=== PATIENT | male | born 1975 | race Caucasian/White ===

== ENCOUNTER 2017-12-25 11:19 | Emergency (ER) | payer MEDICAID, OTHER ==
[~2017-12-25] VITALS: Ht 170.2 cm; Wt 64.0 kg
[~2017-12-25 11:19] MED LIST: DEPER5 PO; DOCU-138 PO; QUET400T PO
[2017-12-25 11:29] VITALS: BP 167/95
== END 2017-12-25 15:46 | disposition home or self-care (01) ==
LOC: ER 11:19
DX: J20.9 Acute bronchitis, unspecified (principal); I10 Essential (primary) hypertension; I25.810 Atherosclerosis of coronary artery bypass graft(s) without angina pectoris; Z98.61 Coronary angioplasty status; Z79.899 Other long term (current) drug therapy
CPT/HCPCS: 71045; 99283

== ENCOUNTER 2017-12-25 20:01 | Emergency (ER) | payer OTHER ==
[~2017-12-25] VITALS: Ht 170.2 cm; Wt 63.0 kg
[2017-12-26 00:13] VITALS: BP 146/65
== END 2017-12-26 00:14 | disposition home or self-care (01) ==
LOC: ER 20:01
DX: J20.9 Acute bronchitis, unspecified (principal); J06.9 Acute upper respiratory infection, unspecified; R51 Headache; I25.10 Atherosclerotic heart disease of native coronary artery without angina pectoris; I10 Essential (primary) hypertension; F20.9 Schizophrenia, unspecified; Z95.1 Presence of aortocoronary bypass graft
CPT/HCPCS: 99283

== ENCOUNTER 2018-01-13 10:41 | Emergency (ER) | payer OTHER ==
[~2018-01-13] VITALS: Ht 170.2 cm; Wt 58.0 kg
[2018-01-13 10:43] VITALS: BP 149/58
[2018-01-13 11:54] LABS: BASOPHILS % 0.3 % (0.0-2.0); CHLORIDE 106 mEq/L (98-107); EOSINOPHILS % 0.8 % (0.0-5.0); HEMATOCRIT. 32.2 % (42.0-52.0); HEMOGLOBIN. 10.9 g/dL (14.0-18.0); MEAN CORPUSCULAR HEMOGLOBIN 32.4 pg (28.0-32.0); MEAN CORPUSCULAR VOLUME 95.9 fL (80.0-94.0); MEAN PLATELET VOLUME 8.6 fl (7.4-10.4); NEUTROPHILS % 64.9 % (40.0-76.0); PLATELET 80 x1000/uL (130-400); RED BLOOD CELL COUNT 3.35 mill/uL (4.7-6.1); RED CELL DISTRIBUTION WIDTH 14.6 % (11.6-14.6)
[2018-01-13 12:36] LABS: CLARITY URINE CLEAR (CLEAR); COLOR URINE YELLOW (YELLOW); KETONES URINE NEGATIVE (NEGATIVE); LEUKOCYTE ESTERASE URINE NEGATIVE (NEGATIVE); NITRITE URINE NEGATIVE (NEGATIVE); OCCULT BLOOD URINE NEGATIVE (NEGATIVE); PH URINE 6.5 (4.5-8.0); PROTEIN URINE NEGATIVE (NEGATIVE); SPECIFIC GRAVITY URINE 1.018 (1.005-1.030)
[2018-01-13 13:34] LABS: *AMPHETAMINES SCREEN URINE NEGATIVE (NEGATIVE); *BARBITURATES SCREEN URINE NEGATIVE (NEGATIVE); *BENZODIAZEPINES SCREEN URINE NEGATIVE (NEGATIVE); *COCAINE SCREEN URINE NEGATIVE (NEGATIVE); CANNABINOID URINE SCREEN NEGATIVE (NEGATIVE); METHADONE URINE SCREEN NEGATIVE (NEGATIVE); PHENCYCLIDINE URINE SCREEN NEGATIVE (NEGATIVE)
[2018-01-13 13:35] LABS: OPIATES URINE SCREEN NEGATIVE (NEGATIVE)
[2018-01-13] MEDS ORDERED: AZITHROMYCIN 500 MG TABLET PO SCH (16:00)
[2018-01-13 16:10] LABS: HEPATITIS B SURFACE ANTIGEN NEGATIVE
[2018-01-13 16:38] LABS: HEPATITIS B CORE AB IGM NEGATIVE
[2018-01-13 16:40] LABS: HEPATITIS A AB IGM NEGATIVE (NEGATIVE)
== END 2018-01-13 15:53 | disposition left against medical advice (07) ==
LOC: ER 12:04 → EDBEDREQ 16:00 → EDBEDREQTM 16:00 → EDBEDREQ 16:01 → CANBEDREQ 17:16
DX: J18.9 Pneumonia, unspecified organism (principal); J90 Pleural effusion, not elsewhere classified; D53.9 Nutritional anemia, unspecified; D72.819 Decreased white blood cell count, unspecified; E86.0 Dehydration; E46 Unspecified protein-calorie malnutrition; E88.09 Other disorders of plasma-protein metabolism, not elsewhere classified; R53.83 Other fatigue; R53.81 Other malaise; B19.20 Unspecified viral hepatitis C without hepatic coma; F41.9 Anxiety disorder, unspecified; F31.9 Bipolar disorder, unspecified; I10 Essential (primary) hypertension; J06.9 Acute upper respiratory infection, unspecified; I25.810 Atherosclerosis of coronary artery bypass graft(s) without angina pectoris; Z98.890 Other specified postprocedural states
CPT/HCPCS: 36415; 71045; 80053; 80305; 81003; 83036; 83735; 83880; 84484; 85025; 86705; 86709; 86803; 87040; 87086; 87340; 93005; 99285

== ENCOUNTER 2018-02-14 14:04 | Emergency (ER) | payer OTHER ==
[~2018-02-14] VITALS: Ht 170.2 cm; Wt 63.0 kg
[2018-02-14] MEDS ORDERED: KETOROLAC 30MG/ML VIAL IV STA (14:17)
[2018-02-14] MEDS ORDERED: SODIUM CHLORIDE 0.9% 1,000 ML IV ONE (14:17)
[2018-02-14] MEDS ORDERED: METOCLOPRAMIDE HCL 10MG/2ML VIAL IV ONE (14:30)
[2018-02-14] MEDS ORDERED: DIPHENHYDRAMINE 50MG/ML VIAL IV ONE (14:30)
[2018-02-14 15:18] LABS: BASOPHILS % 0.4 % (0.0-2.0); EOSINOPHILS % 2.2 % (0.0-5.0); HEMOGLOBIN. 11.3 g/dL (14.0-18.0); MEAN CORPUSCULAR HEMOGLOBIN 31.7 pg (28.0-32.0); MEAN CORPUSCULAR VOLUME 92.3 fL (80.0-94.0); MEAN PLATELET VOLUME 8.1 fl (7.4-10.4); MONOCYTES % 10.9 % (2.0-8.0); NEUTROPHILS % 62.5 % (40.0-76.0); PLATELET 128 x1000/uL (130-400); RED BLOOD CELL COUNT 3.57 mill/uL (4.7-6.1)
[2018-02-14 15:23] LABS: CHLORIDE 107 mEq/L (98-107)
[2018-02-14 16:10] VITALS: BP 108/70
== END 2018-02-14 16:55 | disposition home or self-care (01) ==
LOC: ER 14:42
DX: J18.9 Pneumonia, unspecified organism (principal); D64.9 Anemia, unspecified; E86.0 Dehydration; E88.09 Other disorders of plasma-protein metabolism, not elsewhere classified; R51 Headache; F41.9 Anxiety disorder, unspecified; I11.9 Hypertensive heart disease without heart failure; F31.9 Bipolar disorder, unspecified; Q25.1 Coarctation of aorta; Z79.899 Other long term (current) drug therapy
CPT/HCPCS: 36415; 71045; 80053; 82962; 85025; 96361; 96374; 96375; 99285; J1200; J1885; J2765; J7030

== ENCOUNTER 2018-03-03 08:59 | Emergency (ER) | payer OTHER ==
[~2018-03-03] VITALS: Ht 170.2 cm; Wt 68.0 kg
[2018-03-03 11:49] LABS: CLARITY URINE CLEAR (CLEAR); COLOR URINE ORANGE (YELLOW); KETONES URINE NEGATIVE (NEGATIVE); LEUKOCYTE ESTERASE URINE NEGATIVE (NEGATIVE); NITRITE URINE NEGATIVE (NEGATIVE); OCCULT BLOOD URINE NEGATIVE (NEGATIVE); PH URINE 6.5 (4.5-8.0); PROTEIN URINE NEGATIVE (NEGATIVE); SPECIFIC GRAVITY URINE 1.016 (1.005-1.030)
[2018-03-03 12:41] LABS: CHLORIDE 105 mEq/L (98-107)
[2018-03-03 12:45] LABS: BASOPHILS % 0.4 % (0.0-2.0); EOSINOPHILS % 0.3 % (0.0-5.0); HEMATOCRIT. 35.9 % (42.0-52.0); HEMOGLOBIN. 12.3 g/dL (14.0-18.0); LYMPHOCYTES % 20.8 % (20.0-50.0); MEAN CORPUSCULAR HEMOGLOBIN 31.5 pg (28.0-32.0); MEAN CORPUSCULAR VOLUME 91.6 fL (80.0-94.0); MEAN PLATELET VOLUME 8.5 fl (7.4-10.4); MONOCYTES % 8.3 % (2.0-8.0); NEUTROPHILS % 70.2 % (40.0-76.0); PLATELET 156 x1000/uL (130-400); RED BLOOD CELL COUNT 3.92 mill/uL (4.7-6.1); RED CELL DISTRIBUTION WIDTH 14.3 % (11.6-14.6)
[2018-03-03 14:15] VITALS: BP 145/93
== END 2018-03-03 15:16 | disposition home or self-care (01) ==
LOC: ER 09:15
DX: K59.00 Constipation, unspecified (principal); F41.9 Anxiety disorder, unspecified; F31.9 Bipolar disorder, unspecified; I10 Essential (primary) hypertension; I51.9 Heart disease, unspecified; J06.9 Acute upper respiratory infection, unspecified; Q25.1 Coarctation of aorta; Z98.890 Other specified postprocedural states; Z79.899 Other long term (current) drug therapy
CPT/HCPCS: 36415; 74176; 80165; 99284

== ENCOUNTER 2018-05-19 20:08 | Emergency (ER) | payer OTHER ==
[~2018-05-19] VITALS: Ht 172.7 cm; Wt 69.0 kg
[2018-05-19 23:45] LABS: BASOPHILS % 0.6 % (0.0-2.0); EOSINOPHILS % 0.9 % (0.0-5.0); HEMATOCRIT. 34.2 % (42.0-52.0); HEMOGLOBIN. 11.4 g/dL (14.0-18.0); LYMPHOCYTES % 28.9 % (20.0-50.0); MEAN CORPUSCULAR HEMOGLOBIN 30.1 pg (28.0-32.0); MEAN CORPUSCULAR VOLUME 90.2 fL (80.0-94.0); MEAN PLATELET VOLUME 8.7 fl (7.4-10.4); MONOCYTES % 13.7 % (2.0-8.0); NEUTROPHILS % 55.9 % (40.0-76.0); PLATELET 83 x1000/uL (130-400); RED BLOOD CELL COUNT 3.79 mill/uL (4.7-6.1); RED CELL DISTRIBUTION WIDTH 15.4 % (11.6-14.6)
[2018-05-19 23:49] LABS: CHLORIDE 108 mEq/L (98-107)
[2018-05-20 04:33] VITALS: BP 154/64
== END 2018-05-20 05:06 | disposition home or self-care (01) ==
LOC: ER 20:08 → CANBEDREQ 05-20 06:41
DX: R07.9 Chest pain, unspecified (principal); J45.909 Unspecified asthma, uncomplicated; I10 Essential (primary) hypertension; Z98.62 Peripheral vascular angioplasty status
CPT/HCPCS: 36415; 71045; 83880; 84484; 93005; 99284

== ENCOUNTER 2018-08-12 15:54 | Emergency (ER) | payer OTHER ==
[~2018-08-12] VITALS: Ht 170.2 cm; Wt 64.0 kg
[2018-08-12] MEDS ORDERED: ALBUTEROL (0.083%) 2.5MG/3ML NEB HHN STA (16:46)
[2018-08-12 17:20] LABS: BASOPHILS % 0.6 % (0.0-2.0); EOSINOPHILS % 0.9 % (0.0-5.0); HEMATOCRIT. 34.6 % (42.0-52.0); HEMOGLOBIN. 11.7 g/dL (14.0-18.0); MEAN CORPUSCULAR HEMOGLOBIN 32.2 pg (28.0-32.0); MEAN PLATELET VOLUME 8.4 fl (7.4-10.4); MONOCYTES % 13.3 % (2.0-8.0); NEUTROPHILS % 67.2 % (40.0-76.0); PLATELET 102 x1000/uL (130-400); RED BLOOD CELL COUNT 3.64 mill/uL (4.7-6.1); RED CELL DISTRIBUTION WIDTH 15.6 % (11.6-14.6)
[2018-08-12 17:22] LABS: CHLORIDE 106 mEq/L (98-107)
[2018-08-12 18:56] VITALS: BP 137/74
== END 2018-08-12 18:59 | disposition home or self-care (01) ==
LOC: ER 15:54
DX: J45.909 Unspecified asthma, uncomplicated (principal); R05 Cough; J34.89 Other specified disorders of nose and nasal sinuses; I10 Essential (primary) hypertension; Z87.01 Personal history of pneumonia (recurrent); Z98.890 Other specified postprocedural states; Z79.899 Other long term (current) drug therapy
CPT/HCPCS: 36415; 71045; 80053; 85025; 87804; 94640; 99284; J7611; Z7610

== ENCOUNTER 2019-02-17 16:01 | Emergency (ER) | payer MEDICAID, OTHER ==
[~2019-02-17] VITALS: Ht 175.3 cm; Wt 84.0 kg
[2019-02-17] MEDS ORDERED: ONDANSETRON HCL 4MG/2ML INJ IV STA (17:25)
[2019-02-17] MEDS ORDERED: SODIUM CHLORIDE 0.9% 1,000 ML IV ONE (17:25)
[2019-02-17 17:39] LABS: BASOPHILS % 0.6 % (0.0-2.0); EOSINOPHILS % 0.8 % (0.0-5.0); HEMATOCRIT. 34.4 % (42.0-52.0); HEMOGLOBIN. 11.7 g/dL (14.0-18.0); LYMPHOCYTES % 16.6 % (20.0-50.0); MEAN CORPUSCULAR HEMOGLOBIN 32.2 pg (28.0-32.0); MEAN CORPUSCULAR VOLUME 94.6 fL (80.0-94.0); MEAN PLATELET VOLUME 7.7 fl (7.4-10.4); MONOCYTES % 14.4 % (2.0-8.0); NEUTROPHILS % 67.6 % (40.0-76.0); PLATELET 84 x1000/uL (130-400); RED BLOOD CELL COUNT 3.63 mill/uL (4.7-6.1); RED CELL DISTRIBUTION WIDTH 14.5 % (11.6-14.6)
[2019-02-17 17:45] LABS: CHLORIDE 109 mEq/L (98-107)
[2019-02-17 21:37] VITALS: BP 158/70
== END 2019-02-17 21:47 | disposition home or self-care (01) ==
LOC: ER 16:13
DX: R11.2 Nausea with vomiting, unspecified (principal); J45.909 Unspecified asthma, uncomplicated; I10 Essential (primary) hypertension; Z87.01 Personal history of pneumonia (recurrent)
CPT/HCPCS: 36415; 80053; 83690; 85025; 96374; 99283; J2405; J7030

== ENCOUNTER 2019-03-11 21:07 | Emergency (ER) | payer MEDICAID ==
[~2019-03-11] VITALS: Ht 172.7 cm; Wt 64.0 kg
[2019-03-11] MEDS ORDERED: NITROGLYCERIN OINT 1GM/INCH UDPKT TD ONE (22:00)
[2019-03-11] MEDS ORDERED: SODIUM CHLORIDE 0.9% 1,000 ML IV ONE (22:01)
[2019-03-11 22:51] LABS: HEMATOCRIT. 33.3 % (42.0-52.0); HEMOGLOBIN. 11.6 g/dL (14.0-18.0); MEAN CORPUSCULAR HEMOGLOBIN 31.9 pg (28.0-32.0); MEAN CORPUSCULAR VOLUME 91.5 fL (80.0-94.0); MEAN PLATELET VOLUME 7.5 fl (7.4-10.4); PLATELET 121 x1000/uL (130-400); RED BLOOD CELL COUNT 3.64 mill/uL (4.7-6.1); RED CELL DISTRIBUTION WIDTH 15.1 % (11.6-14.6)
[2019-03-11 22:56] LABS: CHLORIDE 110 mEq/L (98-107)
[2019-03-11 23:00] LABS: ETHANOL BLOOD < 10 mg/dL
[2019-03-11 23:34] LABS: PLATELET ESTIMATE DECREASED
[2019-03-12] MEDS ORDERED: IOHEXOL-350 100 ML BOTTLE ONE (00:01)
[2019-03-12] MEDS ORDERED: CEFTRIAXONE 1 G PREMIX 50 ML IV ONE (01:00)
[2019-03-12] MEDS ORDERED: AZITHROMYCIN 500 MG in DEXT 5% WATER 250 ML IV ONE (01:00)
[2019-03-12 01:58] VITALS: BP 118/49
== END 2019-03-12 02:10 | disposition short-term general hospital (02) ==
LOC: ER 21:07 → CANBEDREQ 03-12 04:56
DX: R07.89 Other chest pain (principal); I51.9 Heart disease, unspecified; J45.909 Unspecified asthma, uncomplicated; Z98.890 Other specified postprocedural states
CPT/HCPCS: 36415; 71045; 71275; 80053; 80320; 83605; 83690; 83880; 84484; 85025; 87040; 93005; 96365; 99285; J0456; J0696; J7030; J7060; Z7610; G0480

== ENCOUNTER 2019-05-06 11:51 | Emergency (ER) | payer MEDICAID ==
[~2019-05-06] VITALS: Ht 170.2 cm; Wt 85.0 kg
[2019-05-06] MEDS ORDERED: ONDANSETRON HCL 4MG/2ML INJ IV STA (13:12)
[2019-05-06] MEDS ORDERED: MORPHINE SULFATE 4 MG/ML CPJ (NOT FOR IM USE) IV STA (13:12)
[2019-05-06] MEDS ORDERED: NITROGLYCERIN OINT 1GM/INCH UDPKT TD ONE (13:15)
[2019-05-06 14:06] LABS: BASOPHILS % 0.5 % (0.0-2.0); EOSINOPHILS % 0.2 % (0.0-5.0); HEMATOCRIT. 32.9 % (42.0-52.0); HEMOGLOBIN. 11.3 g/dL (14.0-18.0); LYMPHOCYTES % 14.3 % (20.0-50.0); MEAN CORPUSCULAR HEMOGLOBIN 30.3 pg (28.0-32.0); MEAN CORPUSCULAR VOLUME 88.7 fL (80.0-94.0); MEAN PLATELET VOLUME 8.3 fl (7.4-10.4); MONOCYTES % 7.8 % (2.0-8.0); NEUTROPHILS % 77.2 % (40.0-76.0); PLATELET 173 x1000/uL (130-400); RED BLOOD CELL COUNT 3.71 mill/uL (4.7-6.1); RED CELL DISTRIBUTION WIDTH 13.5 % (11.6-14.6)
[2019-05-06 14:12] LABS: CHLORIDE 112 mEq/L (98-107)
[2019-05-06 14:17] LABS: ETHANOL BLOOD < 10 mg/dL
[2019-05-06 15:41] VITALS: BP 138/60
== END 2019-05-06 16:05 | disposition short-term general hospital (02) ==
LOC: ER 11:51 → EDBEDREQ 14:03 → EDBEDREQTM 14:03 → CANBEDREQ 14:32 → ER 16:05
DX: R07.89 Other chest pain (principal); J45.909 Unspecified asthma, uncomplicated; Z79.899 Other long term (current) drug therapy
CPT/HCPCS: 36415; 71045; 80053; 80320; 83880; 84484; 85025; 93005; 96374; 96375; 99285; J2270; J2405; G0480

== ENCOUNTER 2019-05-26 17:57 | Emergency (ER) | payer MEDICAID ==
[~2019-05-26] VITALS: Ht 172.7 cm; Wt 78.0 kg
[2019-05-26 22:53] LABS: BASOPHILS % 0.5 % (0.0-2.0); EOSINOPHILS % 0.7 % (0.0-5.0); HEMATOCRIT. 36.7 % (42.0-52.0); HEMOGLOBIN. 12.8 g/dL (14.0-18.0); MEAN CORPUSCULAR HEMOGLOBIN 31.2 pg (28.0-32.0); MEAN CORPUSCULAR VOLUME 89.6 fL (80.0-94.0); MEAN PLATELET VOLUME 8.3 fl (7.4-10.4); MONOCYTES % 8.6 % (2.0-8.0); NEUTROPHILS % 61.2 % (40.0-76.0); PLATELET 206 x1000/uL (130-400); RED BLOOD CELL COUNT 4.09 mill/uL (4.7-6.1); RED CELL DISTRIBUTION WIDTH 13.7 % (11.6-14.6)
[2019-05-26 23:00] LABS: CHLORIDE 109 mEq/L (98-107)
[2019-05-27] MEDS ORDERED: IBUPROFEN 400MG TABLET PO ONE (00:45)
[2019-05-27 01:07] VITALS: BP 114/41
== END 2019-05-27 02:08 | disposition home or self-care (01) ==
LOC: ER 17:57
DX: B34.9 Viral infection, unspecified (principal); J44.9 Chronic obstructive pulmonary disease, unspecified; I10 Essential (primary) hypertension; I25.709 Atherosclerosis of coronary artery bypass graft(s), unspecified, with unspecified angina pectoris; Z79.899 Other long term (current) drug therapy; Z95.1 Presence of aortocoronary bypass graft
CPT/HCPCS: 36415; 71045; 80053; 83880; 84484; 85025; 87804; 93005; 99285

== ENCOUNTER 2019-06-09 12:21 | Emergency (ER) | payer MEDICAID, OTHER ==
[~2019-06-09] VITALS: Ht 172.7 cm; Wt 68.0 kg
[2019-06-09 13:27] LABS: HEMATOCRIT. 35.6 % (42.0-52.0); HEMOGLOBIN. 12.4 g/dL (14.0-18.0); MEAN CORPUSCULAR VOLUME 89.1 fL (80.0-94.0); MEAN PLATELET VOLUME 8.5 fl (7.4-10.4); PLATELET 205 x1000/uL (130-400); RED CELL DISTRIBUTION WIDTH 13.8 % (11.6-14.6)
[2019-06-09 13:33] LABS: CHLORIDE 108 mEq/L (98-107)
[2019-06-09] MEDS ORDERED: ONDANSETRON HCL 4MG/2ML INJ IV ONE ×2 (13:45→14:45)
[2019-06-09 13:56] LABS: PLATELET ESTIMATE NORMAL
[2019-06-09] MEDS ORDERED: PIPERACILLIN/TAZ 3.375G PREMIX 50 ML IV ONE (14:30)
[2019-06-09] MEDS ORDERED: VANCOMYCIN 1 G PREMIX 200 ML IV ONE (14:30)
[2019-06-09] MEDS ORDERED: SODIUM CHLORIDE 0.9% 1,000 ML IV ONE (14:36)
[2019-06-09] MEDS ORDERED: MORPHINE SULFATE 4 MG/ML CPJ (NOT FOR IM USE) IV ONE (14:45)
[2019-06-09 16:44] VITALS: BP 136/49
== END 2019-06-09 17:01 | disposition short-term general hospital (02) ==
LOC: ER 12:30 → CANBEDREQ 19:40
DX: R07.9 Chest pain, unspecified (principal); I10 Essential (primary) hypertension; Z95.1 Presence of aortocoronary bypass graft; Z95.2 Presence of prosthetic heart valve
CPT/HCPCS: 36415; 71045; 80053; 83605; 83880; 84484; 85025; 85379; 87040; 93005; 96365; 96367; 96375; 96376; 99285; J2270; J2405; J2543; J3370; J7030; Z7610

== ENCOUNTER 2019-08-01 00:11 | Inpatient (IN) | payer OTHER ==
[~2019-08-01] VITALS: Ht 170.2 cm; Wt 59.0 kg
[2019-08-01 01:52] LABS: HEMATOCRIT. 35.8 % (42.0-52.0); HEMOGLOBIN. 11.5 g/dL (14.0-18.0); MEAN CORPUSCULAR HEMOGLOBIN 28.9 pg (28.0-32.0); MEAN CORPUSCULAR VOLUME 90.1 fL (80.0-94.0); MEAN PLATELET VOLUME 8.1 fl (7.4-10.4); PLATELET 208 x1000/uL (130-400); RED BLOOD CELL COUNT 3.98 mill/uL (4.7-6.1)
[2019-08-01 01:59] LABS: CHLORIDE 105 mEq/L (98-107)
[2019-08-01 02:23] LABS: PLATELET ESTIMATE NORMAL
[2019-08-01 04:39] LABS: CLARITY URINE CLOUDY (CLEAR); KETONES URINE TRACE (NEGATIVE); LEUKOCYTE ESTERASE URINE TRACE (NEGATIVE); NITRITE URINE NEGATIVE (NEGATIVE); OCCULT BLOOD URINE NEGATIVE (NEGATIVE); PH URINE 5.5 (4.5-8.0); PROTEIN URINE 1+ (NEGATIVE); SPECIFIC GRAVITY URINE 1.026 (1.005-1.030)
[2019-08-01 04:43] LABS: COLOR URINE DARK YELLOW (YELLOW)
[2019-08-01 09:00] VITALS: BP 112/48
[2019-08-01 09:15] VITALS: BP 112/48
[2019-08-01] MEDS ORDERED: RISP05 PO (10:24)
[2019-08-01] MEDS ORDERED: METO25TA6 PO (10:24)
[2019-08-01] MEDS ORDERED: LAMO25TA71 PO (10:24)
[2019-08-01] MEDS ORDERED: LISI2.5T47 MT (10:24)
[2019-08-01] MEDS ORDERED: IPRATROPIUM/ALBUTEROL 0.5-3(2.5)MG/3ML NEB HHN PRN (11:00)
[2019-08-01] MEDS ORDERED: ACETAMINOPHEN 325MG TABLET PO PRN (11:00)
[2019-08-01] MEDS ORDERED: ONDANSETRON HCL 4MG/2ML INJ IV PRN (11:00)
[2019-08-01 12:00] VITALS: BP 91/45
[2019-08-01] MEDS ORDERED: AZITHROMYCIN 500 MG TABLET PO SCH (12:00)
[2019-08-01] MEDS ORDERED: ENOXAPARIN 40MG/0.4ML SYR SUBCUT SCH (12:00)
[2019-08-01 12:44] VITALS: BP 91/45
[2019-08-01] MEDS ORDERED: CEFTRIAXONE 1,000 MG in DEXTROSE 5% WATER 50 ML IV SCH (13:00)
== END 2019-08-01 13:44 | disposition short-term general hospital (02) | DRG 139 ==
LOC: ER 00:18 → 6EST 04:03 → ENRESERV 07:24 → 6EST 09:48
PROVIDERS: ADMIT Internal Medicine; ATTEND Internal Medicine
DX: J18.9 Pneumonia, unspecified organism (principal); E44.1 Mild protein-calorie malnutrition; R15.9 Full incontinence of feces; R32 Unspecified urinary incontinence; R19.7 Diarrhea, unspecified; I10 Essential (primary) hypertension; D64.9 Anemia, unspecified; R62.7 Adult failure to thrive; Z79.899 Other long term (current) drug therapy; Z95.1 Presence of aortocoronary bypass graft; Z68.20 Body mass index [BMI] 20.0-20.9, adult
CPT/HCPCS: 36415; 71045; 80053; 81003; 83036; 85025; 87015; 87045; 87427; 87493; 93005; 99285; J0696; J1650; J7060

== ENCOUNTER 2019-11-23 13:50 | Emergency (ER) | payer OTHER ==
[~2019-11-23] VITALS: Ht 172.7 cm; Wt 76.0 kg
[~2019-11-23 13:50] MED LIST changes: +LAMO25TA71 PO; +LISI2.5T47 MT; +METO25TA6 PO; +RISP05 PO
[2019-11-23] MEDS ORDERED: IBUPROFEN 600MG TABLET PO ONE (16:15)
[2019-11-23 17:22] VITALS: BP 138/76
== END 2019-11-23 17:22 | disposition home or self-care (01) ==
LOC: ER 13:50
DX: M79.662 Pain in left lower leg (principal); J45.909 Unspecified asthma, uncomplicated; I10 Essential (primary) hypertension; E78.00 Pure hypercholesterolemia, unspecified; Z79.899 Other long term (current) drug therapy; Z86.73 Personal history of transient ischemic attack (TIA), and cerebral infarction without residual deficits
CPT/HCPCS: 93971; 99284

== ENCOUNTER 2019-11-28 10:34 | Emergency (ER) | payer OTHER ==
[~2019-11-28] VITALS: Ht 170.2 cm; Wt 63.0 kg
[2019-11-28 11:55] VITALS: BP 121/61
== END 2019-11-28 11:57 | disposition home or self-care (01) ==
LOC: ER 10:34
DX: M79.662 Pain in left lower leg (principal); J45.909 Unspecified asthma, uncomplicated; I11.9 Hypertensive heart disease without heart failure; I69.354 Hemiplegia and hemiparesis following cerebral infarction affecting left non-dominant side; Z95.1 Presence of aortocoronary bypass graft
CPT/HCPCS: 99281

== ENCOUNTER 2019-12-09 21:34 | Emergency (ER) | payer OTHER ==
[~2019-12-09] VITALS: Ht 170.2 cm; Wt 65.0 kg
[2019-12-09 21:40] VITALS: BP 151/90
[2019-12-09 23:38] LABS: BASOPHILS % 0.3 % (0.0-2.0); EOSINOPHILS % 0.3 % (0.0-5.0); HEMATOCRIT. 36.2 % (42.0-52.0); HEMOGLOBIN. 12.7 g/dL (14.0-18.0); LYMPHOCYTES % 13.5 % (20.0-50.0); MEAN CORPUSCULAR HEMOGLOBIN 30.8 pg (28.0-32.0); MEAN CORPUSCULAR VOLUME 87.9 fL (80.0-94.0); MEAN PLATELET VOLUME 7.6 fl (7.4-10.4); MONOCYTES % 7.3 % (2.0-8.0); NEUTROPHILS % 78.6 % (40.0-76.0); PLATELET 200 x1000/uL (130-400); RED BLOOD CELL COUNT 4.11 mill/uL (4.7-6.1); RED CELL DISTRIBUTION WIDTH 14.9 % (11.6-14.6)
[2019-12-09 23:43] LABS: CHLORIDE 108 mEq/L (98-107)
== END 2019-12-10 03:44 | disposition home or self-care (01) ==
LOC: ER 21:34
DX: R07.89 Other chest pain (principal); F41.9 Anxiety disorder, unspecified; I11.9 Hypertensive heart disease without heart failure; I48.91 Unspecified atrial fibrillation; J45.909 Unspecified asthma, uncomplicated; Z95.1 Presence of aortocoronary bypass graft; Z79.01 Long term (current) use of anticoagulants
CPT/HCPCS: 36415; 71045; 80053; 83880; 84484; 85025; 93005; 99285

== ENCOUNTER 2021-07-26 15:24 | Emergency (ER) | payer OTHER ==
[~2021-07-26] VITALS: Ht 170.2 cm; Wt 68.0 kg
[2021-07-26] MEDS ORDERED: IBUPROFEN 400MG TABLET PO ONE (17:30)
[2021-07-26] MEDS ORDERED: TETANUS, DIPHTHERIA, PERTUSSIS VAC/PF 0.5ML (>10YR OLD) IM ONE ×2 (17:30→17:45)
[2021-07-26] MEDS ORDERED: IBUP-2028 MT (18:42)
[2021-07-26 19:09] VITALS: BP 135/80
== END 2021-07-26 19:17 | disposition home or self-care (01) ==
LOC: ER 15:24
DX: S01.111A Laceration without foreign body of right eyelid and periocular area, initial encounter (principal); R51.9 Headache, unspecified; W18.39XA Other fall on same level, initial encounter; Y93.89 Activity, other specified; Y92.89 Other specified places as the place of occurrence of the external cause; Y99.8 Other external cause status; I10 Essential (primary) hypertension; I25.10 Atherosclerotic heart disease of native coronary artery without angina pectoris; Z79.899 Other long term (current) drug therapy
CPT/HCPCS: 70486; 90471; 90715; 99284

== ENCOUNTER 2021-11-26 10:01 | Emergency (ER) | payer OTHER ==
[~2021-11-26 10:01] MED LIST changes: +IBUP-2028 MT
[2021-11-26] MEDS ORDERED: ACETAMINOPHEN 325MG TABLET PO ONE (14:30)
[2021-11-26] MEDS ORDERED: BACL-141 MT (15:21)
[2021-11-26] MEDS ORDERED: ACET-2708 MT (15:21)
== END 2021-11-26 15:54 | disposition home or self-care (01) ==
LOC: ER 10:01
DX: S93.692A Other sprain of left foot, initial encounter (principal); I25.10 Atherosclerotic heart disease of native coronary artery without angina pectoris; I11.9 Hypertensive heart disease without heart failure; X50.3XXA Overexertion from repetitive movements, initial encounter; Y93.01 Activity, walking, marching and hiking; Y92.89 Other specified places as the place of occurrence of the external cause; Z98.62 Peripheral vascular angioplasty status
CPT/HCPCS: 73630; 99283

== ENCOUNTER 2022-11-02 10:01 | Emergency (ER) | payer MEDICAID ==
[~2022-11-02] VITALS: Ht 170.2 cm; Wt 62.0 kg
[~2022-11-02 10:01] MED LIST changes: +ACET-2708 MT; +ACET-2708 PO; +ALBU18HF2 IH; +BACL-141 MT; +LEVO-65 MT
[2022-11-02 10:06] VITALS: BP 150/82; PULSE 80; RESP 16; TEMP 98.2; O2SAT 99
[2022-11-02 10:39] LABS: BASOPHILS % 0.7 % (0.0-2.0); HEMATOCRIT. 36.4 % (42.0-52.0); HEMOGLOBIN. 12.4 g/dL (14.0-18.0); MEAN CORPUSCULAR HEMOGLOBIN 30.5 pg (28.0-32.0); MEAN CORPUSCULAR VOLUME 89.5 fL (80.0-94.0); MEAN PLATELET VOLUME 7.6 fl (7.4-10.4); MONOCYTES % 8.9 % (2.0-8.0); NEUTROPHILS % 66.4 % (40.0-76.0); PLATELET 180 x1000/uL (130-400); RED BLOOD CELL COUNT 4.07 mill/uL (4.7-6.1)
[2022-11-02 10:56] LABS: CHLORIDE 112 mEq/L (98-107)
[2022-11-02 11:17] LABS: ETHANOL BLOOD < 10 mg/dL (-10)
[2022-11-04] MEDS ORDERED: LAMO25TA71 PO (14:56)
[2022-11-04] MEDS ORDERED: RISP1TAB97 PO (14:57)
[2022-11-04] MEDS ORDERED: MIRT-90 PO (14:58)
[2022-11-04] MEDS ORDERED: LISI10TA26 PO (14:58)
[2022-11-04] MEDS ORDERED: RISP4 PO (15:00)
[2022-11-04] MEDS ORDERED: AMLO10TA80 PO (15:02)
[2022-11-04] MEDS ORDERED: METO-385 PO (15:02)
[2022-11-04] MEDS ORDERED: DIPH25TA23 PO (15:03)
[2022-11-04] MEDS ORDERED: ATOR40TA70 PO (15:04)
== END 2022-11-02 13:14 | disposition home or self-care (01) ==
LOC: ER 10:08
DX: R07.89 Other chest pain (principal); I10 Essential (primary) hypertension; Z79.899 Other long term (current) drug therapy
CPT/HCPCS: 36415; 71045; 80053; 80320; 83880; 84484; 85025; 93005; 99285; G0480

== ENCOUNTER 2022-12-21 20:28 | Emergency (ER) | payer MEDICAID ==
[~2022-12-21] VITALS: Ht 170.2 cm; Wt 54.4 kg
[~2022-12-21 20:28] MED LIST changes: -ACET-2708 MT; +ASPI-1406 MT; +ATOR40TA70 PO; -BACL-141 MT; -DEPER5 PO; +DIPH-954 PO; +FLUT250D INH; -IBUP-2028 MT; +IPRA3AMP9 NEB; -LEVO-65 MT; +LEVO750T68 MT; -LISI2.5T47 MT; -METO25TA6 PO; +MIRT-90 PO; +MONT-46 MT; -QUET400T PO; -RISP05 PO; +RISP1TAB97 PO; +RISP4TAB31 MT
[2022-12-21 21:17] VITALS: TEMP 98.3; O2SAT 97
[2022-12-21 22:10] LABS: BASOPHILS % 0.6 % (0.0-2.0); EOSINOPHILS % 1.2 % (0.0-5.0); HEMATOCRIT. 38.6 % (42.0-52.0); HEMOGLOBIN. 13.2 g/dL (14.0-18.0); LYMPHOCYTES % 16.6 % (20.0-50.0); MEAN CORPUSCULAR HEMOGLOBIN 29.8 pg (28.0-32.0); MEAN CORPUSCULAR HGB CONC 34.1 g/dL (31.0-37.0); MEAN CORPUSCULAR VOLUME 87.4 fL (80.0-94.0); MEAN PLATELET VOLUME 8.2 fl (7.4-10.4); MONOCYTES % 9.7 % (2.0-8.0); NEUTROPHILS % 71.9 % (40.0-76.0); PLATELET 247 x1000/uL (130-400); RED BLOOD CELL COUNT 4.41 mill/uL (4.7-6.1); RED CELL DISTRIBUTION WIDTH 14.1 % (11.6-14.6); WHITE BLOOD COUNT 9.5 x1000/uL (4.5-11.0)
[2022-12-21 22:19] LABS: CHLORIDE 104 mEq/L (98-107); INDEX HEMOLYSI 1 (1-3); INDEX ICTERIC 1 (1-4); INDEX LIPEMIC 1 (1-3); SODIUM 135 mEq/L (136-145)
[2022-12-21 22:20] LABS: PARTIAL THROMBOPLASTIN TIME 29.3 sec (23.4-31.0); PROTHROMBIN TIME 10.6 sec (9.6-11.0)
[2022-12-21 22:32] LABS: ALANINE AMINOTRANSFERASE 19 IU/L (13-61); ALBUMIN 3.7 g/dL (3.4-5.0); ASPARTATE AMINOTRANSFERASE 23 IU/L (15-37); BILIRUBIN TOTAL 0.6 mg/dL (0.1-1.0); CARBON DIOXIDE 23 mEq/L (21-32); CREATININE 1.6 mg/dL (0.6-1.3); GLUCOSE 99 mg/dL (70-105); PROTEIN TOTAL 7.8 g/dL (6.0-8.3); TROPONIN I HIGH SENSITIVITY 10 ng/L (<78); UREA NITROGEN BLOOD 39 mg/dL (7-21)
[2022-12-21] MEDS ORDERED: BUDE6HFA INH (23:08)
[2022-12-21] MEDS ORDERED: ALBU6.7H3 INH (23:08)
[2022-12-21 23:36] VITALS: BP 111/40; PULSE 77; RESP 16
== END 2022-12-21 23:37 | disposition home or self-care (01) ==
LOC: ER 20:28
DX: J45.909 Unspecified asthma, uncomplicated (principal); R07.89 Other chest pain; E78.00 Pure hypercholesterolemia, unspecified; I10 Essential (primary) hypertension; Z98.890 Other specified postprocedural states
CPT/HCPCS: 36415; 71045; 80053; 84484; 85025; 93005; 99285

== ENCOUNTER 2023-03-21 10:35 | Emergency (ER) | payer MEDICAID ==
[~2023-03-21] VITALS: Ht 180.3 cm; Wt 68.0 kg
[~2023-03-21 10:35] MED LIST changes: +ALBU6.7H3 INH; +BUDE6HFA INH
[2023-03-21 10:39] VITALS: BP 154/80; TEMP 98.3; O2SAT 96
[2023-03-21 10:40] VITALS: PULSE 115; RESP 16
[2023-03-21 11:17] LABS: BASOPHILS % 0.7 % (0.0-2.0); EOSINOPHILS % 0.5 % (0.0-5.0); HEMATOCRIT. 38.5 % (42.0-52.0); HEMOGLOBIN. 12.8 g/dL (14.0-18.0); LYMPHOCYTES % 13.6 % (20.0-50.0); MEAN CORPUSCULAR HEMOGLOBIN 30.1 pg (28.0-32.0); MEAN CORPUSCULAR HGB CONC 33.2 g/dL (31.0-37.0); MEAN CORPUSCULAR VOLUME 90.5 fL (80.0-94.0); MONOCYTES % 8.6 % (2.0-8.0); NEUTROPHILS % 76.6 % (40.0-76.0); PLATELET 200 x1000/uL (130-400); RED BLOOD CELL COUNT 4.25 mill/uL (4.7-6.1); WHITE BLOOD COUNT 5.9 x1000/uL (4.5-11.0)
[2023-03-21 11:26] LABS: ALANINE AMINOTRANSFERASE 18 IU/L (10-49); ALBUMIN 4.4 g/dL (3.2-4.8); ASPARTATE AMINOTRANSFERASE 26 IU/L (<34); BILIRUBIN TOTAL 0.6 mg/dL (0.1-1.0); CALCIUM 9.4 mg/dL (8.7-10.4); CARBON DIOXIDE 25 mEq/L (21-32); CHLORIDE 106 mEq/L (98-107); CREATININE 1.1 mg/dL (0.6-1.3); GLUCOSE 101 mg/dL (70-105); POTASSIUM 4.1 mEq/L (3.5-5.1); PROTEIN TOTAL 8.1 g/dL (6.0-8.3); SODIUM 139 mEq/L (136-145); TROPONIN I HIGH SENSITIVITY 6 ng/L (3.0-53); UREA NITROGEN BLOOD 19 mg/dL (9-23)
[2023-03-21 11:26] LABS: CLARITY URINE CLEAR (CLEAR); COLOR URINE YELLOW (YELLOW); GLUCOSE URINE NEGATIVE (NEGATIVE); KETONES URINE NEGATIVE (NEGATIVE); LEUKOCYTE ESTERASE URINE NEGATIVE (NEGATIVE); NITRITE URINE NEGATIVE (NEGATIVE); OCCULT BLOOD URINE NEGATIVE (NEGATIVE); PH URINE 5.5 (4.5-8.0); PROTEIN URINE NEGATIVE (NEGATIVE); SPECIFIC GRAVITY URINE 1.019 (1.005-1.030)
[2023-03-21 11:33] LABS: PROTHROMBIN TIME 10.3 sec (9.6-11.0)
[2023-03-21] MEDS ORDERED: ACETAMINOPHEN 325MG TABLET PO NR (12:45)
== END 2023-03-21 14:18 | disposition home or self-care (01) ==
LOC: ER 10:35
DX: R10.9 Unspecified abdominal pain (principal); R51.9 Headache, unspecified; J45.909 Unspecified asthma, uncomplicated; E78.00 Pure hypercholesterolemia, unspecified; I10 Essential (primary) hypertension; Z98.890 Other specified postprocedural states
CPT/HCPCS: 36415; 80053; 81003; 84484; 85025; 93005; 99283; 99284

== ENCOUNTER 2023-10-03 22:00 | Emergency (ER) | payer MEDICAID ==
[~2023-10-03] VITALS: Ht 167.6 cm; Wt 55.0 kg
[~2023-10-03 22:00] MED LIST changes: +RISP-28 PO; -RISP1TAB97 PO
[2023-10-03 22:26] VITALS: TEMP 98.7; O2SAT 100
[2023-10-03] MEDS: ASPIRIN 81MG TABLET PO ONE (23:20)
[2023-10-03 23:39] LABS: BASOPHILS % 0.8 % (0.0-2.0); EOSINOPHILS % 2.5 % (0.0-5.0); HEMATOCRIT. 37.2 % (42.0-52.0); HEMOGLOBIN. 12.4 g/dL (14.0-18.0); LYMPHOCYTES % 29.3 % (20.0-50.0); MEAN CORPUSCULAR HEMOGLOBIN 30.6 pg (28.0-32.0); MEAN CORPUSCULAR HGB CONC 33.4 g/dL (31.0-37.0); MEAN CORPUSCULAR VOLUME 91.5 fL (80.0-94.0); MONOCYTES % 14.2 % (2.0-8.0); NEUTROPHILS % 53.2 % (40.0-76.0); PLATELET 194 x1000/uL (130-400); RED BLOOD CELL COUNT 4.07 mill/uL (4.7-6.1); RED CELL DISTRIBUTION WIDTH 13.4 % (11.6-14.6); WHITE BLOOD COUNT 5.4 x1000/uL (4.5-11.0)
[2023-10-03 23:46] LABS: INR 0.9; PROTHROMBIN TIME 10.4 sec (9.6-11.0)
[2023-10-03 23:49] LABS: CHLORIDE 105 mEq/L (98-107); POTASSIUM 3.8 mEq/L (3.5-5.1); SODIUM 137 mEq/L (136-145)
[2023-10-03 23:50] LABS: CARBON DIOXIDE 23 mEq/L (21-32)
[2023-10-03 23:51] LABS: CALCIUM 8.8 mg/dL (8.7-10.4)
[2023-10-03 23:55] LABS: CREATININE 1.1 mg/dL (0.6-1.3); GLUCOSE 96 mg/dL (70-105); UREA NITROGEN BLOOD 22 mg/dL (9-23)
[2023-10-03 23:57] LABS: TROPONIN I HIGH SENSITIVITY 7 ng/L (3.0-53)
[2023-10-04 01:55] LABS: TROPONIN I HIGH SENSITIVITY 8 ng/L (3.0-53)
[2023-10-04 03:04] VITALS: BP 124/62; PULSE 65; RESP 15
== END 2023-10-04 03:14 | disposition home or self-care (01) ==
LOC: ER 22:00
DX: R07.89 Other chest pain (principal); J45.909 Unspecified asthma, uncomplicated; I10 Essential (primary) hypertension; Z79.899 Other long term (current) drug therapy
CPT/HCPCS: 80048; 85025; 85610; 84484 ×2; 36415 ×2; 71045; 93005; 99285; Z7610

== ENCOUNTER 2024-01-01 17:09 | Emergency (ER) | payer MEDICAID ==
[~2024-01-01] VITALS: Ht 177.8 cm; Wt 60.0 kg
[~2024-01-01 17:09] MED LIST changes: -ALBU6.7H3 INH; -DIPH-954 PO; -DOCU-138 PO; -FLUT250D INH; -LEVO750T68 MT; -MIRT-90 PO; +OMEP20CA14 MT; -RISP-28 PO; -RISP4TAB31 MT; +SUCR1TAB30 MT
[2024-01-01 17:20] VITALS: O2SAT 100
[2024-01-01] MEDS ORDERED: amlodipine (17:20)
[2024-01-01] MEDS ORDERED: lisinopril (17:20)
[2024-01-01] MEDS ORDERED: metoprolol (17:20)
[2024-01-01 17:47] VITALS: PULSE 64; RESP 20
[2024-01-01] MEDS: ALBUTEROL (0.083%) 2.5MG/3ML NEB HHN SCH (17:47)
[2024-01-01] MEDS: IPRATROPIUM BROMIDE (0.02%) 0.5MG/2.5ML NEB HHN STA (17:48)
[2024-01-01 18:12] VITALS: PULSE 72; RESP 20
[2024-01-01] MEDS: METHYLPREDNISOLONE SOD SUCC 125MG/2ML (ACT-O-VIAL) IV STA (18:27)
[2024-01-01 18:35] VITALS: PULSE 74; RESP 20
[2024-01-01 18:44] LABS: HEMATOCRIT. 35.5 % (42.0-52.0); HEMOGLOBIN. 12.1 g/dL (14.0-18.0); MEAN CORPUSCULAR HGB CONC 34.3 g/dL (31.0-37.0); MEAN CORPUSCULAR VOLUME 90.6 fL (80.0-94.0); MEAN PLATELET VOLUME 7.9 fl (7.4-10.4); PLATELET 127 x1000/uL (130-400); RED BLOOD CELL COUNT 3.91 mill/uL (4.7-6.1); RED CELL DISTRIBUTION WIDTH 13.5 % (11.6-14.6)
[2024-01-01 18:46] LABS: DIFFERENTIAL COMMENT 1
[2024-01-01 18:51] LABS: CHLORIDE 105 mEq/L (98-107); POTASSIUM 3.1 mEq/L (3.5-5.1); SODIUM 140 mEq/L (136-145)
[2024-01-01 18:52] LABS: CARBON DIOXIDE 27 mEq/L (21-32)
[2024-01-01] MEDS: ASPIRIN 81MG TABLET PO ONE (18:52)
[2024-01-01] MEDS: NITROGLYCERIN 0.4MG TABLET SL SL PRN (18:52)
[2024-01-01 18:53] LABS: CALCIUM 9.6 mg/dL (8.7-10.4)
[2024-01-01 18:57] LABS: CREATININE 1.1 mg/dL (0.6-1.3); GLUCOSE 80 mg/dL (70-105); UREA NITROGEN BLOOD 14 mg/dL (9-23)
[2024-01-01 19:00] LABS: TROPONIN I HIGH SENSITIVITY 6 ng/L (3.0-53)
[2024-01-01 19:11] LABS: PLATELET ESTIMATE SLIGHTLY DECREASED
[2024-01-01 19:15] LABS: INR 0.9; PARTIAL THROMBOPLASTIN TIME 28.6 sec (23.4-31.0); PROTHROMBIN TIME 10.3 sec (9.6-11.0)
[2024-01-01] MEDS ORDERED: P50 MT (19:35)
[2024-01-01] MEDS ORDERED: MONT-46 MT (19:35)
[2024-01-01] MEDS ORDERED: ALBU18HF2 IH (19:35)
[2024-01-01] MEDS ORDERED: BUDE6HFA INH (19:35)
[2024-01-01 19:52] VITALS: BP 118/71; PULSE 68; RESP 20; TEMP 37.05852; O2SAT 100
== END 2024-01-01 19:54 | disposition home or self-care (01) ==
LOC: ER 17:09
DX: J45.901 Unspecified asthma with (acute) exacerbation (principal); I10 Essential (primary) hypertension; Z98.890 Other specified postprocedural states; Z79.899 Other long term (current) drug therapy
CPT/HCPCS: 80048; 83880; 85025; 85610; 85730; 84484; 36415; 71045; 94640; 93005; 96374; 99285; Z7610 ×4; J2919

== ENCOUNTER 2024-02-01 17:40 | Emergency (ER) | payer MEDICAID ==
[~2024-02-01] VITALS: Ht 175.3 cm; Wt 73.0 kg
[~2024-02-01 17:40] MED LIST changes: +P50 MT; +amlodipine; +lisinopril; +metoprolol
[2024-02-01 17:49] VITALS: BP 136/66; PULSE 88; RESP 16; TEMP 98.7; O2SAT 99
== END 2024-02-01 20:23 | disposition left against medical advice (07) ==
LOC: ER 17:40
DX: R05.9 Cough, unspecified (principal); R09.81 Nasal congestion; J45.909 Unspecified asthma, uncomplicated; I10 Essential (primary) hypertension; Z95.1 Presence of aortocoronary bypass graft; Z79.899 Other long term (current) drug therapy; Z79.82 Long term (current) use of aspirin; Z79.51 Long term (current) use of inhaled steroids; Z87.01 Personal history of pneumonia (recurrent)
CPT/HCPCS: 93005; 99283

== ENCOUNTER 2024-03-30 10:00 | Emergency (ER) | payer MEDICAID ==
[~2024-03-30] VITALS: Ht 175.3 cm; Wt 60.0 kg
[2024-03-30 10:03] VITALS: O2SAT 99
[2024-03-30 10:07] VITALS: BP 121/58; PULSE 88; RESP 16; TEMP 98.1; O2SAT 98
[2024-03-30 11:14] LABS: BASOPHILS % 0.5 % (0.0-2.0); EOSINOPHILS % 0.8 % (0.0-5.0); HEMATOCRIT. 38.1 % (42.0-52.0); HEMOGLOBIN. 12.9 g/dL (14.0-18.0); MEAN CORPUSCULAR HEMOGLOBIN 30.6 pg (28.0-32.0); MEAN CORPUSCULAR HGB CONC 33.8 g/dL (31.0-37.0); MEAN CORPUSCULAR VOLUME 90.4 fL (80.0-94.0); MEAN PLATELET VOLUME 8.2 fl (7.4-10.4); MONOCYTES % 12.6 % (2.0-8.0); NEUTROPHILS % 76.1 % (40.0-76.0); PLATELET 127 x1000/uL (130-400); RED BLOOD CELL COUNT 4.21 mill/uL (4.7-6.1); RED CELL DISTRIBUTION WIDTH 13.8 % (11.6-14.6); WHITE BLOOD COUNT 4.3 x1000/uL (4.5-11.0)
[2024-03-30 11:18] LABS: CARBON DIOXIDE 27 mEq/L (21-32); CHLORIDE 105 mEq/L (98-107); POTASSIUM 4.3 mEq/L (3.5-5.1); SODIUM 140 mEq/L (136-145)
[2024-03-30 11:19] LABS: CALCIUM 9.5 mg/dL (8.7-10.4)
[2024-03-30 11:24] LABS: CREATININE 1.4 mg/dL (0.6-1.3); GLUCOSE 92 mg/dL (70-105); TROPONIN I HIGH SENSITIVITY 6 ng/L (3.0-53); UREA NITROGEN BLOOD 19 mg/dL (9-23)
[2024-03-30 13:44] LABS: TROPONIN I HIGH SENSITIVITY 5 ng/L (3.0-53)
[2024-03-30] MEDS ORDERED: BENZ100C86 MT (14:10)
[2024-04-02] MEDS ORDERED: LEVO750T68 PO (11:38)
== END 2024-03-30 14:42 | disposition home or self-care (01) ==
LOC: ER 10:00
DX: R05.9 Cough, unspecified (principal); I51.9 Heart disease, unspecified; I10 Essential (primary) hypertension; J45.909 Unspecified asthma, uncomplicated; Z79.899 Other long term (current) drug therapy
CPT/HCPCS: 36415; 71045; 80048; 84484; 85025; 93005; 99285

== ENCOUNTER 2024-10-28 11:41 | Emergency (ER) | payer MEDICAID ==
[~2024-10-28] VITALS: Ht 170.2 cm; Wt 63.5 kg
[~2024-10-28 11:41] MED LIST changes: +BENZ100C86 MT; +HYDR-459 PO; +LAM25 PO; -P50 MT; +TRAZ-252 MT; -lisinopril; -metoprolol
[2024-10-28 12:18] VITALS: TEMP 36.6; O2SAT 100
[2024-10-28] MEDS: IBUPROFEN 600MG TABLET PO ONE (12:58)
[2024-10-28] MEDS: LIDOCAINE 5% PATCH TOP SCH (12:59)
[2024-10-28] MEDS ORDERED: IBUP-2028 MT (13:32)
[2024-10-28 13:55] VITALS: BP 131/71; PULSE 62; RESP 18; O2SAT 100
== END 2024-10-28 13:57 | disposition home or self-care (01) ==
LOC: ER 11:41
DX: M25.511 Pain in right shoulder (principal); I10 Essential (primary) hypertension; J45.909 Unspecified asthma, uncomplicated; Z79.51 Long term (current) use of inhaled steroids; Z79.82 Long term (current) use of aspirin; Z79.899 Other long term (current) drug therapy; Z95.1 Presence of aortocoronary bypass graft
CPT/HCPCS: 73030; 99283

== ENCOUNTER 2025-01-28 12:15 | Emergency (ER) | payer MEDICAID ==
[~2025-01-28] VITALS: Ht 170.2 cm; Wt 68.0 kg
[~2025-01-28 12:15] MED LIST changes: -ACET-2708 PO; -ALBU18HF2 IH; -BENZ100C86 MT; +IBUP-2028 MT; +METO25TA6 PO; -MONT-46 MT
[2025-01-28 12:28] VITALS: O2SAT 98
[2025-01-28] MEDS ORDERED: DEXAMETHASONE 1 MG/ML ORAL SYR PO ONE (14:45)
[2025-01-28] MEDS: CYCLOBENZAPRINE 10MG TABLET PO ONE (15:00)
[2025-01-28] MEDS: LIDOCAINE 5% PATCH TOP STA (15:00)
[2025-01-28] MEDS: IBUPROFEN 800MG TABLET PO ONE (15:00)
[2025-01-28] MEDS: DEXAMETHASONE 10 MG/ML VIAL PO NR (15:01)
[2025-01-28] MEDS ORDERED: CYCL10TA21 MT (16:20)
[2025-01-28] MEDS ORDERED: LIDO700A30 TP (16:20)
[2025-01-28] MEDS ORDERED: IBUP-2030 MT (16:20)
[2025-01-28] MEDS ORDERED: TC1C15 TP (16:20)
[2025-01-28 16:27] VITALS: BP 120/72; PULSE 64; RESP 15; TEMP 36.8; O2SAT 98
== END 2025-01-28 16:28 | disposition home or self-care (01) ==
LOC: ER 12:15
DX: M25.511 Pain in right shoulder (principal); L30.9 Dermatitis, unspecified; E78.00 Pure hypercholesterolemia, unspecified; I10 Essential (primary) hypertension; J45.909 Unspecified asthma, uncomplicated; Z79.51 Long term (current) use of inhaled steroids; Z79.82 Long term (current) use of aspirin; Z79.899 Other long term (current) drug therapy
CPT/HCPCS: 99284; J1100; J8540

== ENCOUNTER 2025-02-09 11:20 | Emergency (ER) | payer MEDICAID ==
[~2025-02-09] VITALS: Ht 170.2 cm; Wt 75.0 kg
[~2025-02-09 11:20] MED LIST changes: +CYCL10TA21 MT; +IBUP-2030 MT; +LIDO700A30 TP; +TC1C15 TP
[2025-02-09 11:21] VITALS: BP 136/77; PULSE 115; RESP 16; TEMP 36.6; O2SAT 97
[2025-02-09] MEDS ORDERED: AZIT500T8 MT (12:41)
[2025-02-09 12:45] VITALS: O2SAT 98
== END 2025-02-09 12:56 | disposition home or self-care (01) ==
LOC: ER 11:20
DX: R91.8 Other nonspecific abnormal finding of lung field (principal); I10 Essential (primary) hypertension; E78.00 Pure hypercholesterolemia, unspecified; J45.909 Unspecified asthma, uncomplicated; Z79.899 Other long term (current) drug therapy
CPT/HCPCS: 71045; 99283

== ENCOUNTER 2025-02-11 00:16 | Emergency (ER) | payer MEDICAID ==
[~2025-02-11] VITALS: Ht 170.2 cm; Wt 68.0 kg
[~2025-02-11 00:16] MED LIST changes: +AZIT500T8 MT
[2025-02-11 00:21] VITALS: O2SAT 100
[2025-02-11 00:58] LABS: BASOPHILS % 0.6 % (0.0-2.0); EOSINOPHILS % 0.4 % (0.0-5.0); HEMATOCRIT. 38.3 % (42.0-52.0); HEMOGLOBIN. 13.1 g/dL (14.0-18.0); LYMPHOCYTES % 14.2 % (20.0-50.0); MEAN PLATELET VOLUME 8.1 fl (7.4-10.4); MONOCYTES % 14.2 % (2.0-8.0); NEUTROPHILS % 70.6 % (40.0-76.0); PLATELET 145 x1000/uL (130-400); RED BLOOD CELL COUNT 4.35 mill/uL (4.7-6.1); RED CELL DISTRIBUTION WIDTH 13.5 % (11.6-14.6)
[2025-02-11 01:18] LABS: CREATININE 1.2 mg/dL (0.6-1.3)
[2025-02-11 01:19] LABS: UREA NITROGEN BLOOD 10 mg/dL (9-23)
[2025-02-11 01:21] LABS: TROPONIN I HIGH SENSITIVITY 14 ng/L (3.0-53)
[2025-02-11] MEDS ORDERED: NAPR-1176 MT (03:29)
[2025-02-11 03:45] VITALS: BP 139/56; PULSE 59; RESP 16; TEMP 36.7; O2SAT 95
== END 2025-02-11 04:10 | disposition home or self-care (01) ==
LOC: ER 00:16 → CMPBEDREQ 07:51
DX: R07.89 Other chest pain (principal); I10 Essential (primary) hypertension; J45.909 Unspecified asthma, uncomplicated; Z79.899 Other long term (current) drug therapy; Z79.51 Long term (current) use of inhaled steroids; Z79.1 Long term (current) use of non-steroidal anti-inflammatories (NSAID); Z98.890 Other specified postprocedural states; Z79.82 Long term (current) use of aspirin
CPT/HCPCS: 36415; 71045; 80048; 83735; 83880; 84484; 85025; 93005; 99285

== ENCOUNTER 2025-03-31 13:39 | Emergency (ER) | payer MEDICAID ==
[~2025-03-31] VITALS: Ht 170.2 cm; Wt 64.0 kg
[~2025-03-31 13:39] MED LIST changes: +NAPR-1176 MT
[2025-03-31 13:51] VITALS: O2SAT 99
[2025-03-31] MEDS: KETOROLAC 15MG/ML VIAL IM ONE (17:04)
[2025-03-31] MEDS: LIDOCAINE HCL 1% 20ML VIAL INFIL ONE (18:30)
[2025-03-31] MEDS: TETANUS, DIPHTHERIA, PERTUSSIS VAC/PF 0.5ML (>10YR OLD) IM ONE (18:36)
[2025-03-31] MEDS ORDERED: AMOX1TAB16 MT (18:53)
[2025-03-31 20:10] VITALS: BP 130/58; PULSE 72; RESP 18; TEMP 36.8; O2SAT 97
== END 2025-03-31 20:29 | disposition home or self-care (01) ==
LOC: ER 13:39
DX: S01.511A Laceration without foreign body of lip, initial encounter (principal); S09.93XA Unspecified injury of face, initial encounter; I10 Essential (primary) hypertension; J45.909 Unspecified asthma, uncomplicated; Z79.899 Other long term (current) drug therapy; Z79.82 Long term (current) use of aspirin; Z79.51 Long term (current) use of inhaled steroids; Z79.1 Long term (current) use of non-steroidal anti-inflammatories (NSAID); X58.XXXA Exposure to other specified factors, initial encounter; Y93.89 Activity, other specified; Y92.89 Other specified places as the place of occurrence of the external cause; Y99.8 Other external cause status
CPT/HCPCS: 99285; 70450; 70486; 90715; 12011; 90471; 96372; J1885; J2003

== ENCOUNTER 2025-04-08 16:37 | Emergency (ER) | payer MEDICAID ==
[~2025-04-08] VITALS: Ht 170.2 cm; Wt 68.0 kg
[~2025-04-08 16:37] MED LIST changes: +AMOX1TAB16 MT
[2025-04-08 16:41] VITALS: BP 175/75; PULSE 94; RESP 18; TEMP 98.5; O2SAT 97
[2025-04-08 17:27] LABS: BASOPHILS % 0.3 % (0.0-2.0); EOSINOPHILS % 0.2 % (0.0-5.0); HEMATOCRIT. 39.0 % (42.0-52.0); HEMOGLOBIN. 13.5 g/dL (14.0-18.0); LYMPHOCYTES % 15.2 % (20.0-50.0); MEAN PLATELET VOLUME 7.7 fl (7.4-10.4); MONOCYTES % 8.6 % (2.0-8.0); NEUTROPHILS % 75.7 % (40.0-76.0); PLATELET 175 x1000/uL (130-400); RED BLOOD CELL COUNT 4.37 mill/uL (4.7-6.1); RED CELL DISTRIBUTION WIDTH 14.2 % (11.6-14.6)
[2025-04-08 17:40] LABS: CREATININE 1.2 mg/dL (0.6-1.3); INR 1.0
[2025-04-08 17:41] LABS: PROTEIN TOTAL 7.1 g/dL (6.0-8.3); UREA NITROGEN BLOOD 13 mg/dL (9-23)
[2025-04-08 17:42] LABS: ASPARTATE AMINOTRANSFERASE 17 IU/L (<34); BILIRUBIN DIRECT 0.2 mg/dL (<=3.0)
[2025-04-08 17:43] LABS: BILIRUBIN TOTAL 0.6 mg/dL (0.1-1.0)
== END 2025-04-08 18:19 | disposition left against medical advice (07) ==
LOC: ER 16:37
DX: R07.89 Other chest pain (principal); I10 Essential (primary) hypertension; J45.909 Unspecified asthma, uncomplicated; Z95.2 Presence of prosthetic heart valve; Z79.899 Other long term (current) drug therapy; Z79.82 Long term (current) use of aspirin; Z79.1 Long term (current) use of non-steroidal anti-inflammatories (NSAID); Z79.51 Long term (current) use of inhaled steroids
CPT/HCPCS: 36415; 80048; 80076; 83735; 83880; 85025; 85379; 93005; 99284